=== PATIENT | male | born 1995 | race Caucasian/White ===

== ENCOUNTER 2017-03-20 15:12 | Emergency (ER) | payer OTHER ==
[~2017-03-20] VITALS: Ht 193 cm; Wt 108.9 kg
[2017-03-20 16:11] LABS: MEAN CORPUSCULAR HGB CONC 33.1 g/dl (32.0-36.5); MEAN CORPUSCULAR VOLUME 93.6 fl (80.0-96.0); RED CELL DISTRIBUTION WIDTH 12.3 % (11.5-14.5); WHITE BLOOD COUNT 6.2 K/mm3 (4.0-10.0)
[2017-03-20 16:32] LABS: METHADONE URINE NEGATIVE (NEGATIVE)
[2017-03-20 16:41] LABS: ALBUMIN 4.4 GM/DL (3.2-5.2); ALBUMIN/GLOBULIN RATIO 1.26 (1.00-1.93); ALKALINE PHOSPHATASE 68 U/L (45-117); ALT/SGPT 26 U/L (12-78); ANION GAP 6 MEQ/L (8-16); AST/SGOT 31 U/L (15-37); BILIRUBIN,DIRECT 0.2 MG/DL (0.0-0.2); BILIRUBIN,TOTAL 0.6 MG/DL (0.2-1.0); BLOOD UREA NITROGEN 11 MG/DL (7-18); CALCIUM LEVEL 8.7 MG/DL (8.5-10.1); CARBON DIOXIDE LEVEL 29 MEQ/L (21-32); CHLORIDE LEVEL 106 MEQ/L (98-107); CREATININE FOR GFR 0.99 MG/DL (0.70-1.30); GLUCOSE, FASTING 88 MG/DL (70-105); POTASSIUM SERUM 4.2 MEQ/L (3.5-5.1); SODIUM LEVEL 141 MEQ/L (136-145); TOTAL PROTEIN 7.9 GM/DL (6.4-8.2)
[2017-03-20 17:40] VITALS: BP 132/76
== END 2017-03-20 17:42 | disposition home or self-care (01) ==
LOC: M ED 15:34
DX: R45.1 Restlessness and agitation (principal); R43.9 Unspecified disturbances of smell and taste
CPT/HCPCS: 36415; 80048; 80076; 80306; 84443; 85027; 99284; G0480

== ENCOUNTER 2017-08-17 10:53 | Emergency (ER) | payer OTHER ==
[~2017-08-17] VITALS: Ht 193 cm; Wt 102.3 kg
[2017-08-17] MEDS ORDERED: CELE1CAP4 (11:01)
[2017-08-17] MEDS ORDERED: CYCL10TA PO (12:33)
[2017-08-17 12:37] VITALS: BP 119/83
== END 2017-08-17 12:38 | disposition home or self-care (01) ==
LOC: M ED 10:53
DX: M54.9 Dorsalgia, unspecified (principal); Z72.0 Tobacco use

== ENCOUNTER 2018-07-05 09:27 | Emergency (ER) | payer OTHER | END 2018-07-05 10:03 | disposition home or self-care (01) | LOC: M ED 09:27 | DX: L55.0 Sunburn of first degree (principal); F17.210 Nicotine dependence, cigarettes, uncomplicated | CPT/HCPCS: 99282 ==